=== PATIENT | female | born 1990 | race Caucasian/White ===

== ENCOUNTER 2018-10-24 13:28 | Inpatient (IN) | payer OTHER ==
[~2018-10-24] VITALS: Ht 170.2 cm; Wt 71.8 kg
[2018-10-24 14:11] VITALS: BP 122/75
[2018-10-24] MEDS ORDERED: D5%-LACTATED RINGERS 1,000 ML IV SCH (14:38)
[2018-10-24] MEDS ORDERED: OXYTOCIN 30U/ 0.9% NaCL 500ML 500 ML IV ONE (14:38)
[2018-10-24] MEDS ORDERED: OXYTOCIN 30U/ 0.9% NaCL 500ML 500 ML IV PRN (14:38)
[2018-10-24] MEDS: LACTATED RINGERS 1,000 ML IV SCH ×2 (14:51→23:37)
[2018-10-24] MEDS ORDERED: MISOPROSTOL 200 MCG TABLET ONE (14:54)
[2018-10-24] MEDS ORDERED: OXYTOCIN 30U/ 0.9% NaCL 500ML 500 ML ONE (14:54)
[2018-10-24] MEDS ORDERED: NEWBORN KIT ONE (14:54)
[2018-10-24] MEDS ORDERED: LIDOCAINE 1%, 20ML ONE (14:54)
[2018-10-24] MEDS ORDERED: CALCIUM CARBONATE 500 MG TAB.CHEW PO PRN (15:00)
[2018-10-24] MEDS ORDERED: FENTANYL PF 100 MCG/2ML IVPush PRN (15:00)
[2018-10-24] MEDS ORDERED: ONDANSETRON 2MG/ML, 2ML IVPush PRN (15:00)
[2018-10-24 15:25] LABS: BASOPHILS # (AUTO) 0.04 x10^3/uL (0-0.1); BASOPHILS % (AUTO) 0 % (0-1); EOSINOPHILS # (AUTO) 0.04 x10^3/uL (0-0.4); EOSINOPHILS % (AUTO) 0 % (1-7); LYMPHOCYTES % (AUTO) 11 % (22-44); MD NO; MEAN CORPUSCULAR HEMOGLOBIN 33.6 pg (27.0-34.8); MEAN CORPUSCULAR HGB CONC 34.1 g/dL (32.4-35.8); MEAN CORPUSCULAR VOLUME 98.7 fL (80-100); MONOCYTES # (AUTO) 0.56 x10^3/uL (0.2-0.8); MONOCYTES % (AUTO) 5 % (2-9); NEUTROPHILS # (AUTO) 9.47 x10^3/uL (1.8-6.8); NEUTROPHILS % (AUTO) 83 % (42-75); PLATELET COUNT 249 x10^3/uL (130-400); RED BLOOD COUNT 3.98 x10^6/uL (3.82-5.3); RED CELL DISTRIBUTION WIDTH 13.3 % (9.6-15.2)
[2018-10-24 19:31] VITALS: BP 116/70
[2018-10-24] MEDS ORDERED: FENTANYL/BUPIV./NS/PF 250 ML EPIDCONT SCH ×2 (19:54→22:48)
[2018-10-24] MEDS ORDERED: FENTANYL PF 500 MCG, BUPIVACAINE/PF 0.5%, 30ML 62.5 ML in SODIUM CHLORIDE 0.9% 177.5 ML EPIDCONT SCH (20:00)
[2018-10-24] MEDS ORDERED: FENTANYL PF 100 MCG/2ML ONE (20:37)
[2018-10-24] MEDS ORDERED: BUPIVACAINE 0.25% ONE (22:24)
[2018-10-24] MEDS ORDERED: OXYTOCIN 30U/ 0.9% NaCL 500ML 500 ML IV SCH (22:25)
[2018-10-24] MEDS ORDERED: ONDANSETRON 2MG/ML, 2ML IV PRN (22:30)
[2018-10-24] MEDS ORDERED: OXYcodone IR 5MG TABLET PO PRN (22:30)
[2018-10-24] MEDS ORDERED: MISOPROSTOL 200 MCG TABLET PR PRN (22:30)
[2018-10-24] MEDS ORDERED: OXYcodone/APAP 5/325MG TABLET PO PRN (22:30)
[2018-10-24] MEDS ORDERED: LACTATED RINGERS 1,000 ML IV SCH (22:48)
[2018-10-24] MEDS ORDERED: LACTATED RINGERS 1,000 ML IVBOLUS PRN (23:00)
[2018-10-24] MEDS ORDERED: EPHEDRINE 50 MG/ML, 1ML IVPush PRN (23:00)
[2018-10-25] MEDS ORDERED: PRENATAL VIT/IRON/FA 1 EACH TABLET PO SCH (09:00)
[2018-10-25 10:00] VITALS: BP 102/59
[2018-10-25] MEDS: IBUPROFEN 600 MG TABLET PO PRN (11:59)
[2018-10-25 14:38] VITALS: BP 107/63
[2018-10-25 15:32] LABS: MD YES; MEAN CORPUSCULAR HEMOGLOBIN 32.7 pg (27.0-34.8); MEAN CORPUSCULAR HGB CONC 33.4 g/dL (32.4-35.8); MEAN CORPUSCULAR VOLUME 97.9 fL (80-100); MEAN PLATELET VOLUME 7.9 fL (7.4-10.4); PLATELET COUNT 227 x10^3/uL (130-400); RED BLOOD COUNT 3.59 x10^6/uL (3.82-5.3); RED CELL DISTRIBUTION WIDTH 13.5 % (9.6-15.2)
[2018-10-25 15:40] LABS: BAND#(MANUAL) 5.99 x10^3/uL; BANDS%(MANUAL) 28 % (0-7); LYMPH#(MANUAL) 0.86 x10^3/uL (1-3.4); LYMPHS% (MANUAL) 4 % (22-44); METAMYELOCYTES# (MANUAL) 0.21 x10^3/uL (0-0); METAMYELOCYTES% (MANUAL) 1 % (0-1); MONOS#(MANUAL) 0.64 x10^3/uL (0.3-2.7); MONOS% (MANUAL) 3 % (2-9); SEGS% (MANUAL) 64 % (42-75)
[2018-10-25 15:41] LABS: PMNS WITH VACUOLES 1+
[2018-10-25 15:42] LABS: <PLATELET ESTIMATE> ADEQUATE; <PLT MORPHOLOGY> NORMAL PLT MORPH
[2018-10-25 20:00] VITALS: BP 103/70
[2018-10-26] VITALS: BP 100/60
[2018-10-26] MEDS: IBUPROFEN 600 MG TABLET PO PRN ×2 (00:08→11:45)
[2018-10-26 04:52] VITALS: BP 103/58
[2018-10-26 09:00] VITALS: BP 101/64
[2018-10-26] MEDS ORDERED: IBUP-1222 PO (10:20)
[2018-10-26] MEDS ORDERED: PREN1TAB98 PO (10:21)
== END 2018-10-26 12:20 | disposition home or self-care (01) | DRG 807 ==
LOC: LDOP 13:28 → UNDOADMIN 14:36 → LDIP 14:36 → 2NW 10-25 09:19
PROVIDERS: ADMIT Obstetrics & Gynecology; ATTEND Obstetrics & Gynecology
PROC: 10E0XZZ Delivery of Products of Conception, External Approach (ICD-10-PCS; principal; 2018-10-25)
PROC: 0W8NXZZ Division of Female Perineum, External Approach (ICD-10-PCS; 2018-10-25)
PROC: 3E0R3BZ Introduction of Anesthetic Agent into Spinal Canal, Percutaneous Approach (ICD-10-PCS; 2018-10-25)
PROC: 00HU33Z Insertion of Infusion Device into Spinal Canal, Percutaneous Approach (ICD-10-PCS; 2018-10-25)
DX: O42.92 Full-term premature rupture of membranes, unspecified as to length of time between rupture and onset of labor (principal); Z37.0 Single live birth; O69.81X0 Labor and delivery complicated by cord around neck, without compression, not applicable or unspecified; O99.52 Diseases of the respiratory system complicating childbirth; J45.909 Unspecified asthma, uncomplicated; Z3A.40 40 weeks gestation of pregnancy
CPT/HCPCS: 36415; J7121; 85025; 86850; 86900; 89060; G0378; J3010; J3490; J2590; J7050; J7120; Q0114